=== PATIENT | male | born 1955 | race Hispanic/Latino ===

== ENCOUNTER 2019-01-30 08:41 | Emergency (ER) | payer SELFPAY ==
[2019-01-30] MEDS ORDERED: DEXAMETHASONE SOD PHOSPHATE 10MG/ML 1ML VIAL ONE (09:00)
[2019-01-30] MEDS ORDERED: DiphenhydrAMINE HCL 50 MG/ML VIAL ONE (09:01)
== END 2019-01-30 09:35 | disposition home or self-care (01) ==
LOC: EDH 08:41
DX: R21 Rash and other nonspecific skin eruption (principal); Z72.0 Tobacco use
CPT/HCPCS: 96372 ×2; 99284; J1100; J1200